=== PATIENT | male | born 1945 | race Hispanic/Latino ===

== ENCOUNTER 2020-10-02 14:04 | Emergency (ER) | payer OTHER, MEDICARE ==
[~2020-10-02] VITALS: Ht 170.2 cm; Wt 70.3 kg
[2020-10-02 14:30] VITALS: BP 166/136
[2020-10-02] MEDS ORDERED: ACETAMINOPHEN 500 MG TABLET PO ONE (14:30)
[2020-10-02] MEDS ORDERED: TAMSULOSIN HCL 0.4 MG CAP.ER.24H PO SCH (14:30)
[2020-10-02 15:17] LABS: APPEARANCE,URINE Cloudy (CLEAR); BILIRUBIN,URINE Negative (NEGATIVE); COLOR,URINE Yellow (YELLOW); GLUCOSE, URINE (UA) Negative (NEGATIVE); KETONES,URINE Negative (NEGATIVE); LEUKOCYTE ESTERASE ,URINE Trace (NEGATIVE); NITRATE,URINE Negative (NEGATIVE); OCCULT BLOOD,URINE Negative (NEGATIVE); PH,URINE 6.5 (5.0-8.0); PROTEIN,URINE Negative (NEGATIVE)
[2020-10-02 15:25] LABS: AMORPHOUS SEDIMENT,UR Few /LPF (None Seen); BACTERIA,URINE Rare /HPF (None Seen); MUCUS,URINE Few LPF (None Seen); RBC,URINE None Seen /HPF (0-1); SQUAMOUS EPITHELIAL CELL,UR None Seen /HPF (0-2); WBC,URINE 0-1 /HPF (0-1)
[2020-10-02] MEDS ORDERED: CEFTRIAXONE 1G VIAL IVP ONE (16:00)
[2020-10-02] MEDS ORDERED: CEPH500B PO (16:02)
[2020-10-02] MEDS ORDERED: TAMS-1 PO (16:02)
[2020-10-02] MEDS ORDERED: CEPHALEXIN 500 MG CAPSULE PO ONE (16:30)
[2020-10-02 16:55] VITALS: BP 148/89
== END 2020-10-02 17:23 | disposition home or self-care (01) ==
LOC: EDH 14:04
DX: R33.9 Retention of urine, unspecified (principal); R10.2 Pelvic and perineal pain; R35.0 Frequency of micturition
CPT/HCPCS: 81001